=== PATIENT | female | born 2000 | race Caucasian/White ===

== ENCOUNTER → 2023-05-18 | Outpatient (CLI) | payer OTHER | LOC: LAB SHORT 13:05 → LAB 13:05 | DX: J03.90 Acute tonsillitis, unspecified (principal) | CPT/HCPCS: 87081 ==

== ENCOUNTER → 2024-07-25 | Outpatient (CLI) | payer OTHER ==
[2024-07-25 10:29] LABS: Follicle Stimulating Hormone 4.4 mIU/ml; Prolactin 12.1 ng/mL
== END | disposition home or self-care (01) ==
LOC: LAB 08:33 → LAB SHORT 08:33
PROVIDERS: Physician Assistant
DX: N91.2 Amenorrhea, unspecified (principal)
CPT/HCPCS: 83001; 84146; 84403; 84443

== ENCOUNTER → 2025-01-07 | Outpatient (CLI) | payer OTHER | LOC: LAB SHORT 08:52 → LAB 08:52 | DX: R30.0 Dysuria (principal) | CPT/HCPCS: 87077; 87086; 87186 ==